=== PATIENT | male | born 2000 | race Caucasian/White ===

== ENCOUNTER 2022-12-12 13:01 | Emergency (ER) | payer OTHER, BC ==
[~2022-12-12] VITALS: Ht 185.4 cm; Wt 69.4 kg
== END 2022-12-12 16:33 | disposition home or self-care (01) ==
LOC: EMR PED 13:01
DX: R07.89 Other chest pain (principal); F41.9 Anxiety disorder, unspecified; Z20.822 Contact with and (suspected) exposure to COVID-19; Z88.6 Allergy status to analgesic agent